=== PATIENT | female | born 1980 | race Caucasian/White ===

== ENCOUNTER 2019-09-05 14:49 | Emergency (ER) | payer MEDICAID ==
[~2019-09-05] VITALS: Ht 170.2 cm; Wt 77.3 kg
[2019-09-05 15:23] VITALS: Ht 170.2 cm; Wt 77.3 kg
[2019-09-05] MEDS ORDERED: ALBUTEROL SULF8.5 GM INH (15:24)
[2019-09-05] MEDS ORDERED: PROPRANOLOL HCL20 MG PO (15:25)
[2019-09-05] MEDS ORDERED: CYMBALTA60 MG PO (15:25)
[2019-09-05] MEDS ORDERED: REXULTI1 MG PO (15:25)
[2019-09-05] MEDS ORDERED: VOLTAREN75 MG PO (16:01)
[2019-09-05] MEDS ORDERED: CYCLOBENZAPRINE10 MG PO (16:01)
[2019-09-05 17:23] VITALS: BP 110/71
== END 2019-09-05 17:25 | disposition home or self-care (01) ==
LOC: D.ER 14:49
DX: M54.9 Dorsalgia, unspecified (principal); M62.838 Other muscle spasm; G89.29 Other chronic pain; J45.909 Unspecified asthma, uncomplicated; Z72.0 Tobacco use; M54.2 Cervicalgia